=== PATIENT | male | born 1995 | race African-American/Black ===

== ENCOUNTER 2025-09-12 09:26 | Emergency (ER) | payer SELFPAY ==
[~2025-09-12] VITALS: Ht 172.7 cm; Wt 95.0 kg
[2025-09-12 09:31] VITALS: O2SAT 100
[2025-09-12] MEDS: MORPHINE SULFATE 4 MG/ML INJ (FOR IV/IM USE) IV ONE (09:53)
[2025-09-12 10:12] LABS: BASOPHILS % 1.0 % (0.0-2.0); EOSINOPHILS % 2.1 % (0.0-5.0); HEMATOCRIT. 44.2 % (42.0-52.0); HEMOGLOBIN. 14.4 g/dL (14.0-18.0); LYMPHOCYTES % 20.1 % (20.0-50.0); MEAN PLATELET VOLUME 9.2 fl (7.4-10.4); MONOCYTES % 4.7 % (2.0-8.0); NEUTROPHILS % 72.1 % (40.0-76.0); PLATELET 292 x1000/uL (130-400); RED BLOOD CELL COUNT 5.06 mill/uL (4.7-6.1); RED CELL DISTRIBUTION WIDTH 14.2 % (11.6-14.6)
[2025-09-12 10:37] LABS: CREATININE 1.0 mg/dL (0.6-1.3); UREA NITROGEN BLOOD 6 mg/dL (9-23)
[2025-09-12] MEDS: LIDOCAINE HCL 1% 10 MG/ML 10ML VIAL INJ NR (15:04)
[2025-09-12] MEDS ORDERED: IBUP-2030 MT (15:07)
[2025-09-12] MEDS ORDERED: AMOX1TAB16 MT (15:07)
[2025-09-12 15:22] VITALS: BP 145/81; PULSE 66; RESP 15; TEMP 37.1; O2SAT 100
== END 2025-09-12 15:31 | disposition home or self-care (01) ==
LOC: ER 09:26
DX: S39.94XA Unspecified injury of external genitals, initial encounter (principal); N50.819 Testicular pain, unspecified; Z48.02 Encounter for removal of sutures; X58.XXXA Exposure to other specified factors, initial encounter; Y93.89 Activity, other specified; Y92.89 Other specified places as the place of occurrence of the external cause; Y99.8 Other external cause status
CPT/HCPCS: 80048; 85025; 36415; 93976; 76870; 96374; 99285; J2003; J2270; Z7610 ×2

== ENCOUNTER 2025-09-26 08:53 | Emergency (ER) | payer SELFPAY ==
[~2025-09-26] VITALS: Ht 170.2 cm; Wt 82.0 kg
[~2025-09-26 08:53] MED LIST: AMOX1TAB16 MT; IBUP-2030 MT
[2025-09-26 08:56] VITALS: O2SAT 100
[2025-09-26 10:36] VITALS: BP 119/78; PULSE 80; RESP 16; TEMP 36.7; O2SAT 100
== END 2025-09-26 10:36 | disposition home or self-care (01) ==
LOC: ER 08:53
DX: S31.31XD Laceration without foreign body of scrotum and testes, subsequent encounter (principal); X58.XXXD Exposure to other specified factors, subsequent encounter
CPT/HCPCS: 99282; Z7610 ×2